=== PATIENT | male | born 1985 | race Hispanic/Latino ===

== ENCOUNTER 2019-01-19 14:10 | Outpatient (CLI) | payer OTHER ==
--- NOTE | 2019-01-19 17:39 | ULT ---
RIGHT BREAST ULTRASOUND: 01/19/19 HISTORY: Patient has a palpable finding at the 5 o'clock position of the right breast. Real time imaging of the area of concern shows a small slightly hyperechoic area which is directly be neath the subcutaneous tissue at the 5 o'clock position. It measures 5 x 12 mm. It has the appearanc e suggestion of perhaps a small lipoma. It does not have a typical appearance of lymph node or concer matthew lesion. IMPRESSION: Small echogenic area in the immediate subcutaneous tissue with an overall benign appearance. Possibly a small lipoma. POS: OFF
== END 2019-01-19 14:11 | disposition home or self-care (01) ==
LOC: BICULT 14:10
PROVIDERS: ATTEND Specialist
DX: N63.14 Unspecified lump in the right breast, lower inner quadrant (principal)

== ENCOUNTER 2021-11-03 13:08 | Emergency (ER) | payer OTHER, SELFPAY ==
[2021-11-03] MEDS ORDERED: Ketorolac Tromethamine 30 MG/ML VIAL ONE (15:58)
[2021-11-03] MEDS ORDERED: Acetaminophen 500 MG TAB ONE (15:58)
== END 2021-11-03 16:55 | disposition home or self-care (01) ==
LOC: ERS 13:08
DX: S70.01XA Contusion of right hip, initial encounter (principal); M54.41 Lumbago with sciatica, right side; F17.210 Nicotine dependence, cigarettes, uncomplicated; V04.00XA Pedestrian on foot injured in collision with heavy transport vehicle or bus in nontraffic accident, initial encounter
CPT/HCPCS: 72100; 96372; J1885